=== PATIENT | male | born 1935 | race Caucasian/White ===

== ENCOUNTER 2022-08-03 16:13 | Emergency (ER) | payer MEDICARE, SELFPAY ==
[2022-08-03 16:38] VITALS: BP 171/93; PULSE 97; RESP 18; TEMP 36.8; O2SAT 95; BMI 24.7
[2022-08-03] MEDS: lidocaine HCL 2 % JELLY (TOP) STERILE 6 ML UR (16:50)
--- NOTE | 2022-08-03 17:21 | ED.NURSE ---
Patient had 16 Coude catheter placed with 600ml urine output. Reports immediate relief of urinary pain.
--- NOTE | 2022-08-03 17:24 | ED.NURSE ---
Discharge education done with and patient on use of leg bag during the day and night bag at night. Patient was adamantly against using the larger leg bag during the day. Talked about cleaning of bags and perineal area, how to change them out, and signs and symptoms of infection. Patient and understood the teaching and were able to verbalize the instructions back.
--- NOTE | 2022-08-03 17:54 | ED.NURSE ---
Pt called to talk to Dr José about the medication that was prescribed for him yesterday, ciprofloxacin
--- NOTE | 2022-08-06 05:50 | ED_ITS ---
HPI - General Adult General Chief complaint: Post Op Complication Stated complaint: Can't Pee, Post Surgical, Pain Time Seen by Provider: 08/03/22 16:22 History of Present Illness HPI narrative: Patient reports recent bladder sling done yesterday at [place]. Had a shea catheter removed and was discharged but has been unable to void since and has extreme urinary fullness and discomfort. 87-year-old man presenting to the emergency department restless in discomfort. Had a bladder sling placed yesterday at [place] and fully removed. Has been unable to void urine since departure. Increasing uncomfortable. No fever noted. Related Data Home Medications Medication Instructions Recorded Confirmed atorvastatin 40 mg tablet 40 mg PO QPM 06/26/22 06/26/22 lisinopril 10 mg tablet 10 mg PO DAILY 06/26/22 06/26/22 Previous Rx's Medication Instructions Recorded meclizine 25 mg tablet 25 mg PO TID #15 tabs 06/26/22 Allergies Allergy/AdvReac Type Severity Reaction Status Date / Time Sulfa (Sulfonamide Allergy Verified 06/26/22 18:55 Antibiotics) Review of Systems Status of ROS: Reports: 6 or more systems reviewed and unremarkable except as noted in History and below PFSH PFS Social History Smoking Status: Unknown if ever smoked Do you use any of these nicotine containing products: None Second hand tobacco smoke exposure: No How often do you have a drink containing alcohol: never AUDIT-C Alcohol total score: 0 Non-prescribed substance use: denies use service: No Exam Narrative: Exam Narrative: Pleasant. Of good energy. By the time I am seeing Mr. Krause I discussed care already with nurses in this very busy emergency department. Was given urojet and a coude Shea was placed. Draining urine. He is more relaxed. Breathing easily Conversant. Abdomen is soft. There is extensive bruising without cellulitic change about the scrotum. Lower extremities are without edema. Const: Documenting provider has reviewed patient's vital signs: yes Course Vital Signs Vital signs: Initial Vital Signs Temperature 98.3 F 08/03/22 16:38 Temperature Source Temporal Artery Scan 08/03/22 16:38 Pulse Rate 97 08/03/22 16:38 Respiratory Rate 18 08/03/22 16:38 Blood Pressure 171/93 H 08/03/22 16:38 Blood Pressure Mean 119 H 08/03/22 16:38 Pulse Oximetry 95 08/03/22 16:38 Oxygen Delivery Method Room Air 08/03/22 16:38 Vital Signs Temperature 98.3 F 08/03/22 16:38 Pulse Rate 97 08/03/22 16:38 Respiratory Rate 18 08/03/22 16:38 Blood Pressure 171/93 H 08/03/22 16:38 Pulse Oximetry 95 08/03/22 16:38 Oxygen Delivery Method Room Air 08/03/22 16:38 Temperature 98.3 F 08/03/22 16:38 Pulse Rate 97 08/03/22 16:38 Respiratory Rate 18 08/03/22 16:38 Blood Pressure 171/93 H 08/03/22 16:38 Pulse Oximetry 95 08/03/22 16:38 Oxygen Delivery Method Room Air 08/03/22 16:38 Medical Decision Making MDM Narrative Medical decision making narrative: See above See patient discharge plan Sounds like had been placed on prophylactic ciprofloxacin with later conversation with Mr. Krause. Discussed pros and cons of use and potential side effects. I anticipate him continuing his treatment. I would think though that is prophylaxis 5 days would be sufficient. Sounds to have been in usual health and without a urinary tract infection prior to this procedure. Discharge Plan Discharge Clinical Impression: Acute urinary retention Patient Disposition: Home w/ Parent or Adult Condition: Improved Additional Instructions: I would keep this catheter in through the weekend. Please follow up on Saturday or Saturday in clinic to get it pulled. Call me (Abhishek José) with the name of that crazy medication and we can talk about it. Phone number here is [phone] Prescriptions: No Action atorvastatin 40 mg tablet 40 mg PO QPM lisinopril 10 mg tablet 10 mg PO DAILY meclizine 25 mg tablet 25 mg PO TID Qty: 15 0RF Follow Up/Referrals: Nabil Granados MD [Primary Care Provider] - Stand Alone Forms: [facility] Info Instructions
== END 2022-08-03 18:10 | disposition home or self-care (01) ==
LOC: ED 17:04
PROVIDERS: Emergency Provider Family Medicine; PCP Family Medicine
DX: R33.9 Retention of urine, unspecified (principal)
CPT/HCPCS: 51702; 99283; 99284